=== PATIENT | female | born 1990 | race Caucasian/White ===

== ENCOUNTER → 2017-01-22 | Outpatient (CLI) | payer OTHER ==
[~2017-01-22] VITALS: Ht 165.1 cm; Wt 55.0 kg
[2017-01-22] VITALS (9 sets, daily range): BP systolic 109–129; BP diastolic 50–86; PULSE 50–86; TEMP 36.8; O2SAT 98–100; Ht 165.1 cm; Wt 55.0 kg
[~2017-01-22] MED LIST: BENZOCAIN/TETRACA/BUTAM SPRAY 200 APPLN/20 GM SPRY ONE; CANNULA ONE; FENTANYL CITRATE INJ 50 MCG/1 ML 2 ML VIAL ONE; LIDOCAINE HCL 2% VISC SOLN 20 ML UDC ONE; MIDAZOLAM HCL 1 MG/ML 2ML VIAL ONE
--- NOTE | 2017-01-22 07:55 | History & Physical Bridge Note ---
H&P Re-Evaluation Bridge Note: I have examined the patient, reviewed the History & Physical and in the interval since the performance of the History & Physical I have noted the following changes of clinical significance: No changes noted.
--- NOTE | 2017-01-22 07:55 | Procedure Note ---
Pre-Mod Sedation Assessment General Date of Moderate Sedation: Jan 22, 2017. Vital Signs: Vital Signs Past 12 Hours Date Time Temp Pulse Resp B/P (MAP) Pulse Ox O2 Delivery O2 Flow Rate FiO2 01/22/17 07:35 36.8 71 12 120/60 100 Room Air Review Cardiovascular: regular rate, rhythm Abdomen: soft, no organomegaly Lungs: lungs clear Airway Class: I Pre-Sedation Airway Assessment Oral Cavity: WNL Able to Visualize Vocal Cords: No Short Thick Neck: No Hx of Sleep Apnea: No Smoking Status: Never Smoker Mallampati Classification: Class II ASA Classification: Class II Procedure Planning Contraindications-for Mod Sed: None Yes Notes The planned sedation has been discussed with the patient and consent obtained. I have identified the patient, determined the appropriateness of sedation and have assessed the patient immediately prior to the procedure. All medicine(s) and interventions are by my order.
--- NOTE | 2017-01-22 08:48 | Procedure Note ---
Post-Mod Sedation Assessment General Date of Moderate Sedation Jan 22, 2017. Vital Signs: Vital Signs Past 12 Hours Date Time Temp Pulse Resp B/P (MAP) Pulse Ox O2 Delivery O2 Flow Rate FiO2 01/22/17 08:42 53 12 118/45 (69) 99 Nasal Cannula 2 01/22/17 07:35 36.8 71 12 120/60 100 Room Air Review - Discharge Criteria Vital Signs Stable: Yes Alert/Oriented/Conversant: Yes Returned to Baseline Mental St: Yes Nausea Absent/Minimal: Yes Pain/Discomfort/Absent/Minimal: Yes Normal/Baseline Respirations: Yes Active Bleeding?: No Pt Received D/C Instructions: Yes Prescriptions Given: None Specific Proced. D/C Criteria Distal Pulses Present (Cardiac: N/A Groin site assessed-Card Cath: N/A Voided Prior To Discharge: N/A Discharged Patients Adult Escort/Transportation: Yes
--- NOTE | 2017-01-22 08:56 | Cardiology Procedure Brief Nt ---
Preliminary Cardiology Note Procedure Date Jan 22, 2017. Pre-Procedure Diagnosis congenital heart disease, technically limited transthoratic echocardiogram Post-Procedure Diagnosis intact atrial septum, mild MR Procedure(s) Performed DONTA, moderate sedation Asthma Educator Neela Freed DO City Solicitor(s) MARCELA Anglin Estimated Blood Loss none Medication(s) Sedation start time: 8:07 am, Sedation end time 8:41 am. 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
--- NOTE | 2017-01-22 09:00 | Discharge Instructions ---
Discharge Instructions Procedure Procedure Date: Jan 22, 2017. Reason for Visit: Congenital Heart Disease, Surgical atrial septal defect closure as child. Discharge Discharge Date: Jan 22, 2017. Discharge Diagnosis: Intact atrial septum [place] Mitral valve Morphology, mild MR. Last Recorded Wt (Kilograms): 55 Anesthesia Post Anesthesia Instructions: If you have had General Anesthesia or IV Sedation: * Do not drive today. * Resume driving when surgeon permits. * Do not make important decisions or sign legal documents today. * Call surgeon for: 1. Temperature elevations greater than 101 degrees F. 2. Uncontrollable pain. 3. Excessive bleeding. 4. Persistent nausea and vomiting. 5. Medication intolerance (nausea, vomiting or rash). * For nausea and vomiting use only clear liquids such as: tea, soda, bouillon until nausea subsides, then gradually increase diet as tolerated. * If you have any concerns or questions, call your surgeon's office. If physician is unavailable and it is an emergency, call 911 or go to the nearest emergency room. Instructions Activity Recommendations: limitations as noted below Recommended Home Diet: resume previous diet Allergies: Coded Allergies: Codeine (Unverified Allergy, Intermediate, HIVES, 01/22/17) PER PATIENT Follow Up Additional Instructions: ACTIVITY RECOMMENDATIONS: Resume activities as tolerated with no limitations unless specified. _x_ No lifting over _10_ pounds for 24 hours. _x_ Do not engage in vigorous exercise, sexual activity, or sports for 24 hours. _x_ Do not drive or operate any motorized equipment for 24 hours. _x_ You may return to work/school tomorrow. _x_ Nothing to eat or drink until gag reflex returns. _x_ No HOT or WARM liquids for _10_ hours. _x_ Avoid "scratchy" foods such as potato chips or pretzels for 24 hours following procedure. SPECIAL CARE: If you experience coughing up or vomiting of blood, contact __Dr Freed, Follow-up with: Dr Freed as planned. [facility] Recommendations: Call your doctor if: * Temperature above 101 degrees * Pain not relieved by pain medicine ordered * There is increased drainage or redness from any incision * You have any unanswered questions or concerns. Your Doctors Instructions noted above were prepared by provider Jonah Freed. Patient Signature Section: Patient Instructions Signature Page Michelle Hsu Patient (or Guardian) Signature/Date: I have read and understand the instructions given to me by my caregivers. Caregiver/RN/Doctor Signature/Date: The above-named patient and/or guardian has received patient instructions on this date. + Original Patient Signature Page (only) stays with chart. Please make copy for patient.
--- NOTE | 2017-01-22 19:31 | TEE ---
*NOTICE TO RECEIVING DEMOCRAT AGENCY This information is strictly Confidential and protected under [place] law. [place] law prohibits you from making any further disclosure of this information unless further disclosure is expressly permitted by the written consent of the person to whom it pertains or is authorized by law. A general authorization for the release of medical or other information is not sufficient for this purpose. Hospital accepts no responsibility if the information is made available to any other person, INCLUDING THE PATIENT. Interpretation Summary * Name: EDISON LEE Study Date: 01/22/2017 07:08 AM BP: 129/77 mmHg * Patient Location: Cardiopulmonary Lab HR: 54 * : 1990 (M/d/yyyy) Gender: Female Height: 65 in * Age: 27 yrs Ethnicity: CA Weight: 122 lb * Ordering Physician: Jonah Freed DO [facility] * Performed By: Scout Ann RCS * * Reason For Study: Mitral Valve Dz * BSA: 1.6 m2 * -- Conclusions -- * The study was performed for follow up of congenital heart disease in a 27 year old female who recently moved to the area having previously been followed in the [facility]. * She has history of congestive heart failure as an with surgical repair of an atrial septal defect at age 7 months. * She is known to have residual congenital mitral valve disease. * Her recent transthoracic echocardiogram was technically inadequate given poor acoustic windows and limitations with the standard imaging views. * The study reveals congenital variation of the right ventricular and left ventricular anatomy. * The LV Ejection Fraction = 55-60% (normal). * The RV ejection fraction is normal. * The tricuspid valve annulus is narrow as is the right ventricular inflow diameter from the right atrium. * Significant tricuspid regurgitation is absent. * There is no tricuspid stenosis. * The mitral valve is congenitally abnormal with a single papillary muscle arising from the interventricular septum. * The mitral valve leaflets were moderately thickened. * There is mild mitral regurgitation. * There is no mitral valve stenosis. * The aortic valve is trileaflet. * No aortic regurgitation is present. Procedure Details * DONTA Probe #3 utilized for procedure Procedure start time was 0807 Procedure stop time was 0841 * The study was performed in Cardiopulmonary Department. * Time out was conducted by the physician, nurse, and fishing tool technician oil well with positive identification of patient and procedure. * Informed consent for Transesophageal Echocardiogram was obtained prior to the procedure. * An intravenous line was placed. A topical anesthetic agent was used for oropharangeal anesthesia. A bite block was inserted. * The patient's vital signs, including blood pressure, heart rate, pulse oximetry and cardiac rhythm were monitored throughout the procedure . * Fentanyl 75 mcg was administered for procedural sedation. * Midazolam 4 mg administered for sedation. * A multifrequency, multiplane transesopheageal echocardiographic endoscope was inserted and manipulated in the standard fashion to achieve multiplane views. * The transesophageal probe was passed without difficulty. * Contrast injection with agitated saline was performed. * The usual views were obtained; basal, mid-esophageal, transgastric and aortic views. * The patient tolerated the procedure well without evidence of orophangeal or esophageal trauma. * A 2D transesophageal echocardiogram was performed. * A 2D transesophageal echocardiogram with Doppler and color flow Doppler was performed. Left Ventricle * The left ventricle is normal in size. * There is normal left ventricular wall thickness. * Left ventricular systolic function is normal. * Ejection Fraction = 55-60%. * The left ventricular wall motion is normal. Right Ventricle * The right ventricle is normal in size and function. Atria * The left atrial size is normal. * Right atrial size is normal. * The interatrial septum is intact with no evidence for an atrial septal defect. Mitral Valve * The mitral valve is congenitally abnormal with a single papillary muscle arising from the interventricular septum. * There is no mitral valve prolapse present. * There is no mitral valve stenosis. * The mitral valve leaflets were moderately thickened. * There is mild mitral regurgitation. Tricuspid Valve * The tricuspid valve annulus is narrow as is the right ventricular inflow diameter from the right atrium. * There is no tricuspid stenosis. * Significant tricuspid regurgitation is absent. Aortic Valve * The aortic valve is trileaflet. * No hemodynamically significant valvular aortic stenosis. * No aortic regurgitation is present. Pulmonic Valve * The pulmonic valve is not well seen, but is grossly normal. Great Vessels * The aortic root is normal size. Pericardium * There is no pericardial effusion. Doppler Measurements and Calculations MV V2 mean 78.4 cm/sec MV mean PG 3.7 mmHg MV V2 VTI 47.5 cm
== END | disposition home or self-care (01) ==
LOC: C.CPL 06:43
PROVIDERS: ATTEND Specialist
DX: I05.9 Rheumatic mitral valve disease, unspecified (principal); R00.2 Palpitations; Z98.890 Other specified postprocedural states; Z87.74 Personal history of (corrected) congenital malformations of heart and circulatory system; R94.31 Abnormal electrocardiogram [ECG] [EKG]

== ENCOUNTER 2017-02-18 09:06 | Emergency (ER) | payer OTHER ==
[~2017-02-18] VITALS: Ht 165.1 cm; Wt 55.5 kg
[2017-02-18 09:09] VITALS: TEMP 36.5; Ht 165.1 cm; Wt 55.5 kg
[2017-02-18] MEDS ORDERED: ONDANSETRON INJ 2 MG/ML 2 ML VIAL IV STA (09:17)
[2017-02-18] MEDS ORDERED: KETOROLAC TROMETHAMINE 30 MG/ML VIAL IV STA (09:17)
[2017-02-18] MEDS ORDERED: SODIUM CHLORIDE 0.9% 1000ML 1,000 ML IV STA (09:17)
--- NOTE | 2017-02-18 09:23 | EMERGENCY ROOM VISIT NOTE ---
History Report prepared by Derrell: Klaudia Armas Under the Supervision of: Dr. Manan Cason M.D. First contact with patient: 09:13 Chief Complaint: VOMITING Stated Complaint: VOMITTING DEHYDRATED Nursing Triage Summary: pt reports at 0600 today vomiting and diarrhea and chest intermittently gets tight . pt suppose to have imaging done for lump on right hip area. sx started 3 days History of Present Illness The patient is a 27 year old female who presents to the Emergency Room with complaints of persistent vomiting that began this morning. She currently rates her discomfort as a 4/10 in severity. The patient states that three days ago she developed right lower abdominal pain that has been intermittent. She states that she is scheduled to have an ultrasound at [facility] [place] today at 1130 for the pain and a lump that she found on her right hip. The patient denies any previous abdominal surgery, stating that she still has her gallbladder and appendix. She is unsure if she is , noting that she is supposed to start her cycle tomorrow. The patient additionally reports diarrhea. Source of History: patient Onset: this morning Position: other (global) Symptom Intensity: 4/10 Quality: other (vomiting) Timing: other (persistent) Associated Symptoms: + abdominal pain, + diarrhea Review of Systems See HPI for pertinent positives & negatives. A total of 10 systems reviewed and were otherwise negative. Past Medical & Surgical Medical Problems: (1) Mitral valve disorder Family History Heart disease Social History Smoking Status: Never Smoker Marital Status: Housing Status: lives with significant other Occupation Status: employed Current/Historical Medications Scheduled Ondasetron Odt (Zofran Odt), 4 MG SL Q6H Allergies Coded Allergies: Codeine (Unverified Allergy, Intermediate, HIVES, 02/18/17) PER PATIENT Physical Exam Vital Signs Date Time Temp Pulse Resp B/P (MAP) Pulse Ox O2 Delivery O2 Flow Rate FiO2 02/18/17 10:43 81 18 115/69 98 02/18/17 10:03 83 18 110/67 99 Room Air 02/18/17 09:35 88 02/18/17 09:09 36.5 112 18 121/81 99 Room Air Physical Exam GENERAL: Patient is a healthy-appearing well-nourished female HEAD: Normocephalic atraumatic EYES: Ocular movements intact pupils equal and react to light OROPHARYNX mucous membranes are moist no exudates present no erythema or edema present NECK: Supple no nuchal rigidity CHEST: Good equal expansion LUNGS: Clear and equal to auscultation CARDIAC: Normal S1 and S2 ABDOMEN: Soft nontender no guarding BACK: No CVA tenderness EXTREMITIES: No pain upon palpation normal muscle strength in all groups no clubbing cyanosis or edema NEURO: Patient is following commands and answering questions appropriately. Alert and oriented x3 Cranial Nerves 2-12 grossly intact Medical Decision & Procedures ER Provider Diagnostic Interpretation: X-ray results as stated below per interpretation by me and the radiologist: ABDOMEN 2VIEW W/PA CHEST RTN CLINICAL HISTORY: Nausea, vomiting, diarrhea COMPARISON STUDY: No previous studies for comparison. FINDINGS: There are postsurgical changes of midline sternotomy. There is no focal pulmonary consolidation. There is no free intraperitoneal air. There are no transition zones indicate bowel obstruction. There are few scattered air-fluid levels on the erect study. There are several small bowel loops the upper limits of normal in diameter. IMPRESSION: Nonspecific bowel gas pattern with small bowel loops at the upper limits of normal in size, and scattered air-fluid levels, most of which are colonic. There is no conventional radiographic evidence of a high-grade bowel obstruction. There is no free air. Electronically signed by: Yefri Nagel M.D. 02/18/2017 10:02 AM Dictated Date/Time: 02/18/2017 10:00 AM Laboratory Results 02/18/17 09:25 Red Blood Count 4.55, Mean Corpuscular Volume 91.2, Mean Corpuscular Hemoglobin 30.5, Mean Corpuscular Hemoglobin Concent 33.5, Mean Platelet Volume 9.6, Neutrophils (%) (Auto) 87.0, Lymphocytes (%) (Auto) 4.5, Monocytes (%) (Auto) 7.3, Eosinophils (%) (Auto) 0.8, Basophils (%) (Auto) 0.1, Neutrophils # (Auto) 18.03, Lymphocytes # (Auto) 0.93, Monocytes # (Auto) 1.52, Eosinophils # (Auto) 0.16, Basophils # (Auto) 0.02 02/18/17 09:25 Test 02/18/17 09:25 02/18/17 10:35 White Blood Count 20.72 K/uL (4.8-10.8) Red Blood Count 4.55 M/uL (4.2-5.4) Hemoglobin 13.9 g/dL (12.0-16.0) Hematocrit 41.5 % (37-47) Mean Corpuscular Volume 91.2 fL (80-100) Mean Corpuscular Hemoglobin 30.5 pg (25-34) Mean Corpuscular Hemoglobin Concent 33.5 g/dl (32-36) Platelet Count 380 K/uL (130-400) Mean Platelet Volume 9.6 fL (7.4-10.4) Neutrophils (%) (Auto) 87.0 % Lymphocytes (%) (Auto) 4.5 % Monocytes (%) (Auto) 7.3 % Eosinophils (%) (Auto) 0.8 % Basophils (%) (Auto) 0.1 % Neutrophils # (Auto) 18.03 K/uL (1.4-6.5) Lymphocytes # (Auto) 0.93 K/uL (1.2-3.4) Monocytes # (Auto) 1.52 K/uL (0.11-0.59) Eosinophils # (Auto) 0.16 K/uL (0-0.5) Basophils # (Auto) 0.02 K/uL (0-0.2) RDW Standard Deviation 44.8 fL (36.4-46.3) RDW Coefficient of Variation 13.6 % (11.5-14.5) Immature Granulocyte % (Auto) 0.3 % Immature Granulocyte # (Auto) 0.06 K/uL (0.00-0.02) Anion Gap 8.0 mmol/L (3-11) Est Creatinine Clear Calc Drug Dose 94.1 ml/min Estimated GFR () 119.9 Estimated GFR (Non- 103.5 BUN/Creatinine Ratio 19.4 (10-20) Calcium Level 9.0 mg/dl (8.5-10.1) Total Bilirubin 0.7 mg/dl (0.2-1) Direct Bilirubin 0.2 mg/dl (0-0.2) Aspartate Amino Transf (AST/SGOT) 13 U/L (15-37) Alanine Aminotransferase (ALT/SGPT) 20 U/L (12-78) Alkaline Phosphatase 50 U/L (45-117) Total Protein 8.8 gm/dl (6.4-8.2) Albumin 4.6 gm/dl (3.4-5.0) Lipase 138 U/L (73-393) Human Chorionic Gonadotropin, Qual NEG (NEG) Urine Color DK YELLOW Urine Appearance CLEAR (CLEAR) Urine pH 5.0 (4.5-7.5) Urine Specific [place] 1.028 (1.000-1.030) Urine Protein TRACE (NEG) Urine Glucose (UA) NEG (NEG) Urine Ketones 1+ (NEG) Urine Occult Blood NEG (NEG) Urine Nitrite NEG (NEG) Urine Bilirubin NEG (NEG) Urine Urobilinogen NEG (NEG) Urine Leukocyte Esterase SMALL (NEG) Urine WBC (Auto) 1-5 /hpf (0-5) Urine RBC (Auto) 0-4 /hpf (0-4) Urine Hyaline Casts (Auto) 5-10 /lpf (0-5) Urine Epithelial Cells (Auto) >30 /lpf (0-5) Urine Bacteria (Auto) NEG (NEG) Urine Test NEG (NEG) Medications Administered Medications (Trade) Dose Ordered Sig/Bud Route Start Time Stop Time Status Last Admin Dose Admin Sodium Chloride 1,000 ml @ 999 mls/hr Q1H1M STAT IV 02/18/17 09:17 10 10:17 DC 02/18/17 09:29 999 MLS/HR Ketorolac Tromethamine (Toradol Inj) 30 mg NOW STAT IV 02/18/17 09:17 02/18/17 09:18 DC 02/18/17 09:29 30 MG Ondansetron HCl (Zofran Inj) 4 mg NOW STAT IV 02/18/17 09:17 02/18/17 09:18 DC 02/18/17 09:29 4 MG ED Course 0914: Past medical records reviewed. The patient was evaluated in room B5. A complete history and physical examination was performed. 0917: Ordered Zofran Inj 4 mg IV, Toradol Inj 30 mg IV, Sodium Chloride 1000 ml @ 999 mls/hr IV. 1015: I reevaluated the patient and she is resting comfortably. I discussed the exam findings with her and I discussed the treatment plan. She verbalized complete understanding and agreement. She is ready to go home. Medical Decision Differential diagnosis: Etiologies such as gastroenteritis, food borne illness, infections, appendicitis , diverticulitis, inflammatory bowel disease, obstruction, GI bleed, biliary pathology, as well as others were entertained. This is a 27-year-old female who presents emergency department complaining of nausea vomiting and diarrhea. Serial abdominal examinations were performed on the patient in the emergency department and at no tender the patient exhibit right lower quadrant abdominal tenderness for any abdominal pain. She does not have a surgical abdomen. The patient is having a cyst on her right hip evaluated at an appointment 11:15. She does have an elevation in her white blood count cell count however is afebrile and I believe this may be due to vomiting. The patient was given normal saline bolus as well as Toradol and Zofran. Repeat abdominal examination revealed the patient able to drink Gatorade. Based on these findings I feel that the patient can be discharged home pending urine and stool culture results. She is not . Patient is going to follow-up for her appointment at 11:15 today. Medication Reconcilliation Current Medication List: was personally reviewed by me Impression Primary Impression: Gastroenteritis Scribe Attestation The scribe's documentation has been prepared under my direction and personally reviewed by me in its entirety. I confirm that the note above accurately reflects all work, treatment, procedures, and medical decision making performed by me. Departure Information Dispostion Home / Self-Care Prescriptions Ondasetron Odt (ZOFRAN ODT) 4 Mg Tab 4 MG SL Q6H for Nausea, #6 TAB Prov: Manan Cason MD 02/18/17 Referrals Qasim Hoffman M.D.(SHERI) (PCP) Forms HOME CARE DOCUMENTATION FORM, IMPORTANT VISIT INFORMATION, School Instructions, Work Instructions Patient Instructions ED Gastroenteritis Report Pend, My [facility] Additional Instructions Keep appointments as previously scheduled. Culture results are usually available in approx 48 hours You have been examined and treated today on an emergency basis only. This is not a substitute for, or an effort to provide, complete comprehensive medical care. It is impossible to recognize and treat all injuries or illnesses in a single emergency department visit. It is therefore important that you follow up closely with Dr Hoffman. Call as soon as possible for an appointment. Thank you for your time and consideration. I look forward to speaking with you again soon. Please don't hesitate to call us if you have any questions.
[2017-02-18 09:42] LABS: BASO % 0.1 %; BASO ABS # 0.02 K/uL (0-0.2); COMPLETE YES; EOS % 0.8 %; HEMATOCRIT 41.5 % (37-47); IG% 0.3 %; LYMPH % 4.5 %; LYMPH ABS # 0.93 K/uL (1.2-3.4); MEAN CELL VOLUME 91.2 fL (80-100); MEAN CORPUSCULAR HEMOGLOBIN 30.5 pg (25-34); MEAN CORPUSCULAR HGB CONC 33.5 g/dl (32-36); MEAN PLATELET VOLUME 9.6 fL (7.4-10.4); MONO % 7.3 %; PLATELET COUNT 380 K/uL (130-400); RED BLOOD COUNT 4.55 M/uL (4.2-5.4); WHITE BLOOD COUNT 20.72 K/uL (4.8-10.8)
[2017-02-18 10:01] LABS: BUN/CREATININE RATIO 19.4 (10-20); CREATININE 0.78 mg/dl (0.60-1.20); POTASSIUM 3.6 mmol/L (3.5-5.1)
--- NOTE | 2017-02-18 10:03 | DIAGNOSTIC IMAGING REPORT ---
ABDOMEN 2VIEW W/PA CHEST RTN CLINICAL HISTORY: Nausea, vomiting, diarrhea COMPARISON STUDY: No previous studies for comparison. FINDINGS: There are postsurgical changes of midline sternotomy. There is no focal pulmonary consolidation. There is no free intraperitoneal air. There are no transition zones indicate bowel obstruction. There are few scattered air-fluid levels on the erect study. There are several small bowel loops the upper limits of normal in diameter. IMPRESSION: Nonspecific bowel gas pattern with small bowel loops at the upper limits of normal in size, and scattered air-fluid levels, most of which are colonic. There is no conventional radiographic evidence of a high-grade bowel obstruction. There is no free air. Electronically signed by: Yefri Nagel M.D. 02/18/2017 10:02 AM Dictated Date/Time: 02/18/2017 10:00 AM
[2017-02-18] MEDS ORDERED: ONDA4TAB10 SL (10:14)
[2017-02-18 10:43] VITALS: BP 115/69; PULSE 81; O2SAT 98
[2017-02-18 10:51] LABS: URINE APPEARANCE CLEAR (CLEAR); URINE BILIRUBIN NEG (NEG); URINE COLOR DK YELLOW; URINE EPITHELIAL CELL AUTO >30 /lpf (0-5); URINE NITRITE NEG (NEG); URINE SPECIFIC GRAVITY 1.028 (1.000-1.030); UROBILINOGEN NEG (NEG)
[2017-02-18 10:52] LABS: MANUAL MICROSCOPIC REQUIRED? NO; REVIEW REQ? NO
[2017-02-18 10:55] LABS: PREG INTERNAL NEGATIVE QC NEG CLEAR BACKGROUND; PREG INTERNAL POSITIVE QC POS CONTROL LINE
== END 2017-02-18 10:44 | disposition home or self-care (01) ==
LOC: C.EDB 09:08
DX: K52.9 Noninfective gastroenteritis and colitis, unspecified (principal); I34.1 Nonrheumatic mitral (valve) prolapse; Z88.5 Allergy status to narcotic agent; Z82.49 Family history of ischemic heart disease and other diseases of the circulatory system

== ENCOUNTER 2017-09-14 18:28 | Emergency (ER) | payer OTHER ==
[~2017-09-14] VITALS: Ht 165.1 cm; Wt 58.9 kg
[2017-09-14 18:30] VITALS: TEMP 36.8; Ht 165.1 cm; Wt 58.9 kg
[2017-09-14] MEDS ORDERED: SODIUM CHLORIDE 0.9% 1000ML 1,000 ML IV STA (18:48)
--- NOTE | 2017-09-14 19:19 | EMERGENCY ROOM VISIT NOTE ---
ED Visit Note First contact with patient: 18:33 CHIEF COMPLAINT: Right lower quadrant abdominal pain HISTORY OF PRESENTING ILLNESS: This is a 27-year-old female presents with complaint of right lower quadrant abdominal pain that started today. Patient states that she started with mid abdominal discomfort and cramping, pain then moved and localized to her right lower abdomen. She describes the pain as constant, pressure-like, worse with moving and bending at the waist, better with lying still, currently rates as 6/10. She has not tried any medications for the pain. She has had associated nausea and decreased appetite today, but denies any vomiting, fevers or chills, diarrhea, constipation, bloody or black stools, urinary symptoms, abnormal vaginal bleeding or discharge. Her last menstrual period was 09/01. She denies any history of previous abdominal surgeries. She denies any history of ovarian cysts. She does note that she had a colposcopy done to cut out a spot on her cervix approximately 1 week ago, but denies any issues since the surgery. She denies any other symptoms of headaches, chest pain, shortness of breath, back pain, numbness or tingling of the extremities, or unusual rash. REVIEW OF SYSTEMS: A complete 10 point review of systems was reviewed with the patient with pertinent positives and negatives as per history of present illness. All else were negative. PAST MEDICAL HISTORY: Reviewed in chart, see problem list below SOCIAL HISTORY: Lives at home. Denies tobacco use. ALLERGIES: Reviewed in chart, see below. PHYSICAL EXAM: CONSTITUTIONAL: Pleasant and cooperative. No acute distress, but appears uncomfortable. Mildly dehydrated, but otherwise well appearing and well nourished. HEENT: Normocephalic, atraumatic. Pupils equal, round and reactive to light, EOMI. TMs normal. Pharynx normal. Tacky mucous membranes. NECK: Supple, full active range of motion without discomfort. RESPIRATORY: Clear to auscultation bilaterally with no wheezing, crackles, rhonchi or stridor. Equal expansion bilaterally. CARDIOVASCULAR: Regular rate and rhythm with no murmurs, rubs or gallops. Normal peripheral perfusion. No edema. GASTROINTESTINAL: Moderately tender to palpation in the right lower quadrant with positive McBurney's point tenderness, positive rebound tenderness, positive Rovsing. Soft, nondistended. No palpable masses or HSM. Bowel sounds present in all quadrants. No CVA tenderness bilaterally. MUSCULOSKELETAL: Full range of motion of all joints without discomfort. INTEGUMENTARY: No rash or other significant dermatologic conditions noted. NEUROLOGIC: Alert and oriented X 4 with normal affect. Normal strength and sensation in all 4 extremities. No focal neurologic deficits noted. Normal speech. Normal gait observed. ED COURSE AND MEDICAL DECISION MAKING: CC: Patient presenting with complaint of right lower quadrant abdominal pain DIFFERENTIAL DIAGNOSIS: Includes, but not limited to appendicitis, mesenteric adenitis, ovarian cyst, ovarian torsion, ectopic , gastroenteritis, colitis, UTI, among others. INTERPRETATION OF LABS: No leukocytosis, no anemia, no significant electrolyte abnormalities, normal renal function, normal liver enzymes and lipase. Negative serum . UA consistent with contamination, no infection. IMAGING: PELVIC COMPLETE NON OB CLINICAL HISTORY: 27 years-old Female presenting with RLQ pain, eval for ovarian cyst/torsion. TECHNIQUE: Real-time grayscale and color and spectral Doppler ultrasound imaging of the pelvis was performed first using a transabdominal probe and subsequently transvaginal for better characterization. COMPARISON: None. FINDINGS: Uterus: Normal. Anteverted retroflexed. The uterus measures 8.5 x 4.2 x 5.3 cm. Endometrial stripe measures 15 mm in thickness. Endometrium normal-appearing for the phase of the menstrual cycle. Cervix normal. Right adnexa: Right ovary contains a 2.0 x 1.7 x 1.8 cm lesion with homogenous low-level internal echoes. An additional hypoechoic more irregular 1.6 x 1.1 x 1.1 cm lesion is also noted within the ovary. Neither of these demonstrate internal vascularity or marked peripheral hyperemia. Right ovary measures 4.7 x 2.6 x 3.2 cm. Normal color Doppler flow and arterial and venous waveforms within the ovarian parenchyma. Left adnexa: Left ovary normal. Left ovary measures 3.8 x 2.0 x 2.7 cm. Normal color Doppler flow and arterial and venous waveforms within the ovarian parenchyma. Other: Trace free fluid, likely physiologic. IMPRESSION: No evidence of ovarian torsion. Findings suggest a hemorrhagic cyst/corpus luteum as well as a possible endometrioma within the right ovary. These would be better assessed with MR, however, a follow-up pelvic ultrasound could be considered as 4-6 weeks to assess for resolution. ----- ABDOMEN LIMITED (US) CLINICAL HISTORY: 27 years-old Female presenting with ABDOMINAL PAIN. TECHNIQUE: Real-time grayscale and limited color Doppler ultrasound imaging of the right lower quadrant was performed to evaluate the appendix. COMPARISON: Plain radiograph of the abdomen from 02/18/2017. FINDINGS: Appendix not visualized. No free fluid or hyperechogenic fat to suggest secondary signs of inflammation. IMPRESSION: Appendix not visualized, although no secondary signs of inflammation. This does not exclude the diagnosis of appendicitis. MEDICATION RECONCILIATION: I attest that I have personally reviewed the patient 's current medication list. INITIAL VITAL SIGNS REVIEW: I reviewed the patient's initial vital signs and interpret them as follows: T: Afebrile; BP: Normotensive; HR: Within normal limits; RR: Within normal limits; Pulse Ox: Within normal limits on room air. Blood pressure screening: The patient was found to have normal blood pressure on screening and does not require follow-up for repeat blood pressure check. SUMMARY: Patient was evaluated at bedside, history and physical exam performed. Patient is alert and oriented, no acute distress but appears uncomfortable, resting in the stretcher. Tender to palpation in the right lower quadrant with McBurney's point tenderness , slight rebound tenderness, and positive Rovsing. No palpable mass to suggest hernia or large ovarian cyst. Orders were placed at bedside for labs, UA and urine , IV fluids for hydration, pelvic ultrasound to evaluate for ovarian pathology and appendicitis , and oral prep started for possible CT of the abdomen/pelvis to evaluate for appendicitis. Patient was offered something for pain, she declines at this time. Patient discussed with Dr. Chacon, who agrees with my assessment and plan. Labs and imaging reviewed as above, pelvic ultrasound notable for a right hemorrhagic ovarian cyst, which I suspect is the cause of patient's pain. I discussed results with the patient, she was given IV Toradol for her pain, and CT was canceled. Patient reassessed multiple times throughout ED stay, she reports improved pain after the Toradol and has remained stable. Patient was updated on all results and plan for discharge, she was encouraged to follow-up with her PCP and to keep her scheduled follow-up with her finished metal repairer. Patient was also given strict return precautions should her symptoms worsen, she verbalized understanding. Patient was discharged home in stable condition and ambulatory. Problem List Medical Problems: (1) Mitral valve disorder Status: Chronic Current/Historical Medications No Active Prescriptions or Reported Meds Allergies Coded Allergies: Codeine (Unverified Allergy, Intermediate, HIVES, 02/18/17) PER PATIENT Vital Signs Date Time Temp Pulse Resp B/P (MAP) Pulse Ox O2 Delivery O2 Flow Rate FiO2 09/14/17 22:06 57 18 100/48 98 09/14/17 20:19 58 18 117/62 100 Room Air 09/14/17 18:30 36.8 92 18 134/72 99 Room Air Laboratory Results 09/14/17 19:00 Red Blood Count 4.12, Mean Corpuscular Volume 90.3, Mean Corpuscular Hemoglobin 30.8, Mean Corpuscular Hemoglobin Concent 34.1, Mean Platelet Volume 9.6, Neutrophils (%) (Auto) 51.1, Lymphocytes (%) (Auto) 36.1, Monocytes (%) (Auto) 7.5, Eosinophils (%) (Auto) 4.8, Basophils (%) (Auto) 0.4, Neutrophils # (Auto) 5.07, Lymphocytes # (Auto) 3.59, Monocytes # (Auto) 0.75, Eosinophils # (Auto) 0.48, Basophils # (Auto) 0.04 09/14/17 19:00 Test 09/14/17 19:00 White Blood Count 9.94 K/uL (4.8-10.8) Red Blood Count 4.12 M/uL (4.2-5.4) Hemoglobin 12.7 g/dL (12.0-16.0) Hematocrit 37.2 % (37-47) Mean Corpuscular Volume 90.3 fL (80-100) Mean Corpuscular Hemoglobin 30.8 pg (25-34) Mean Corpuscular Hemoglobin Concent 34.1 g/dl (32-36) Platelet Count 343 K/uL (130-400) Mean Platelet Volume 9.6 fL (7.4-10.4) Neutrophils (%) (Auto) 51.1 % Lymphocytes (%) (Auto) 36.1 % Monocytes (%) (Auto) 7.5 % Eosinophils (%) (Auto) 4.8 % Basophils (%) (Auto) 0.4 % Neutrophils # (Auto) 5.07 K/uL (1.4-6.5) Lymphocytes # (Auto) 3.59 K/uL (1.2-3.4) Monocytes # (Auto) 0.75 K/uL (0.11-0.59) Eosinophils # (Auto) 0.48 K/uL (0-0.5) Basophils # (Auto) 0.04 K/uL (0-0.2) RDW Standard Deviation 44.6 fL (36.4-46.3) RDW Coefficient of Variation 13.4 % (11.5-14.5) Immature Granulocyte % (Auto) 0.1 % Immature Granulocyte # (Auto) 0.01 K/uL (0.00-0.02) Urine Color YELLOW Urine Appearance CLEAR (CLEAR) Urine pH 6.5 (4.5-7.5) Urine Specific [place] 1.011 (1.000-1.030) Urine Protein NEG (NEG) Urine Glucose (UA) NEG (NEG) Urine Ketones NEG (NEG) Urine Occult Blood NEG (NEG) Urine Nitrite NEG (NEG) Urine Bilirubin NEG (NEG) Urine Urobilinogen NEG (NEG) Urine Leukocyte Esterase SMALL (NEG) Urine WBC (Auto) 1-5 /hpf (0-5) Urine RBC (Auto) 0-4 /hpf (0-4) Urine Hyaline Casts (Auto) 0 /lpf (0-5) Urine Epithelial Cells (Auto) 20-30 /lpf (0-5) Urine Bacteria (Auto) NEG (NEG) Anion Gap 6.0 mmol/L (3-11) Est Creatinine Clear Calc Drug Dose 96.6 ml/min Estimated GFR () 119.9 Estimated GFR (Non- 103.5 BUN/Creatinine Ratio 10.0 (10-20) Calcium Level 8.8 mg/dl (8.5-10.1) Total Bilirubin 0.5 mg/dl (0.2-1) Direct Bilirubin 0.2 mg/dl (0-0.2) Aspartate Amino Transf (AST/SGOT) 12 U/L (15-37) Alanine Aminotransferase (ALT/SGPT) 20 U/L (12-78) Alkaline Phosphatase 54 U/L (45-117) Total Protein 8.1 gm/dl (6.4-8.2) Albumin 4.2 gm/dl (3.4-5.0) Lipase 145 U/L (73-393) Human Chorionic Gonadotropin, Qual NEG (NEG) Medications Administered Medications (Trade) Dose Ordered Sig/Bud Route Start Time Stop Time Status Last Admin Dose Admin Sodium Chloride 1,000 ml @ 999 mls/hr Q1H1M STAT IV 09/14/17 18:48 09/14/17 19:48 DC 09/14/17 19:12 999 MLS/HR Ketorolac Tromethamine (Toradol Inj) 15 mg NOW STAT IV 09/14/17 21:29 09/14/17 21:30 DC 09/14/17 21:37 15 MG Departure Information Impression Primary Impression: Hemorrhagic cyst of right ovary Dispostion Home / Self-Care Condition GOOD Prescriptions No Active Prescriptions or Reported Meds Referrals Qasim Hoffman M.D.([facility]) (PCP) Patient Instructions ED Cyst Ovarian, [facility] Additional Instructions You have been treated in the Emergency Department for your abdominal pain. Laboratory results and imaging studies have ruled out any emergent causes for your symptoms which would warrant admission or surgery. Your ultrasound shows a right ovarian cyst. This should be followed by your finished metal repairer. For pain control, you can use the following [id number] medicines (if >12 yo): - Regular strength (325mg/tab) Tylenol (acetaminophen) 2 tabs every 4-6 hours as needed. Do not exceed 10 tablets in a 24 hour period. Avoid taking more than 3000 mg of Tylenol per day. This includes any other sources of acetaminophen you may take on a regular basis. - Regular strength (200 mg/tab) Advil (ibuprofen) 3 tabs every 6-8 hours as needed. Do not exceed a dose of 2400 mg per day. You may also use a heating pad to her abdomen for comfort. Drink plenty of fluids to stay well hydrated. Please follow-up with your Primary Care Provider in the next few days if her symptoms are not improving. Keep your scheduled appointment with her finished metal repairer next week and discuss your ovarian cyst with them. Return to the emergency department for severe worsening abdominal or back pain, worsening nausea/vomiting, vomiting blood, blood in your stool or urine, heavy vaginal bleeding (soaking through more than 1 pad every hour), fevers > 101.5, severe dizziness or passing out, or any other concerns. Work Instructions Return To Work: 2 days
[2017-09-14 19:24] LABS: BASO % 0.4 %; BASO ABS # 0.04 K/uL (0-0.2); EOS % 4.8 %; EOS ABS # 0.48 K/uL (0-0.5); HEMATOCRIT 37.2 % (37-47); HEMOGLOBIN 12.7 g/dL (12.0-16.0); IG# 0.01 K/uL (0.00-0.02); LYMPH % 36.1 %; LYMPH ABS # 3.59 K/uL (1.2-3.4); MEAN CELL VOLUME 90.3 fL (80-100); MEAN CORPUSCULAR HEMOGLOBIN 30.8 pg (25-34); MEAN CORPUSCULAR HGB CONC 34.1 g/dl (32-36); MEAN PLATELET VOLUME 9.6 fL (7.4-10.4); MONO % 7.5 %; MONO ABS # 0.75 K/uL (0.11-0.59); NEUT % 51.1 %; NEUT ABS # 5.07 K/uL (1.4-6.5); PLATELET COUNT 343 K/uL (130-400); RED CELL DISTRIBUTION WIDTH CV 13.4 % (11.5-14.5); RED CELL DISTRIBUTION WIDTH SD 44.6 fL (36.4-46.3); WHITE BLOOD COUNT 9.94 K/uL (4.8-10.8)
[2017-09-14 19:45] LABS: ALBUMIN 4.2 gm/dl (3.4-5.0); CALCIUM 8.8 mg/dl (8.5-10.1); CREATININE 0.78 mg/dl (0.60-1.20); POTASSIUM 3.4 mmol/L (3.5-5.1)
[2017-09-14 19:48] LABS: TOTAL PROTEIN 8.1 gm/dl (6.4-8.2)
--- NOTE | 2017-09-14 20:15 | DIAGNOSTIC IMAGING REPORT ---
ABDOMEN LIMITED (US) CLINICAL HISTORY: 27 years-old Female presenting with ABDOMINAL PAIN. TECHNIQUE: Real-time grayscale and limited color Doppler ultrasound imaging of the right lower quadrant was performed to evaluate the appendix. COMPARISON: Plain radiograph of the abdomen from 02/18/2017. FINDINGS: Appendix not visualized. No free fluid or hyperechogenic fat to suggest secondary signs of inflammation. IMPRESSION: Appendix not visualized, although no secondary signs of inflammation. This does not exclude the diagnosis of appendicitis. Electronically signed by: Robbin Dorantes M.D. 09/14/2017 8:13 PM Dictated Date/Time: 09/14/2017 8:12 PM
--- NOTE | 2017-09-14 20:23 | DIAGNOSTIC IMAGING REPORT ---
PELVIC COMPLETE NON OB CLINICAL HISTORY: 27 years-old Female presenting with RLQ pain, eval for ovarian cyst/torsion. TECHNIQUE: Real-time grayscale and color and spectral Doppler ultrasound imaging of the pelvis was performed first using a transabdominal probe and subsequently transvaginal for better characterization. COMPARISON: None. FINDINGS: Uterus: Normal. Anteverted retroflexed. The uterus measures 8.5 x 4.2 x 5.3 cm. Endometrial stripe measures 15 mm in thickness. Endometrium normal-appearing for the phase of the menstrual cycle. Cervix normal. Right adnexa: Right ovary contains a 2.0 x 1.7 x 1.8 cm lesion with homogenous low-level internal echoes. An additional hypoechoic more irregular 1.6 x 1.1 x 1.1 cm lesion is also noted within the ovary. Neither of these demonstrate internal vascularity or marked peripheral hyperemia. Right ovary measures 4.7 x 2.6 x 3.2 cm. Normal color Doppler flow and arterial and venous waveforms within the ovarian parenchyma. Left adnexa: Left ovary normal. Left ovary measures 3.8 x 2.0 x 2.7 cm. Normal color Doppler flow and arterial and venous waveforms within the ovarian parenchyma. Other: Trace free fluid, likely physiologic. IMPRESSION: No evidence of ovarian torsion. Findings suggest a hemorrhagic cyst/corpus luteum as well as a possible endometrioma within the right ovary. These would be better assessed with MR, however, a follow-up pelvic ultrasound could be considered as 4-6 weeks to assess for resolution. Electronically signed by: Robbin Dorantes M.D. 09/14/2017 8:21 PM Dictated Date/Time: 09/14/2017 8:14 PM
[2017-09-14] MEDS ORDERED: KETOROLAC TROMETHAMINE 30 MG/ML VIAL IV STA (21:29)
[2017-09-14 22:06] VITALS: BP 100/48; PULSE 57; O2SAT 98
== END 2017-09-14 22:07 | disposition home or self-care (01) ==
LOC: C.EDB 18:30
DX: N83.201 Unspecified ovarian cyst, right side (principal); Z88.5 Allergy status to narcotic agent

== ENCOUNTER 2017-12-21 21:52 | Emergency (ER) | payer OTHER ==
[~2017-12-21] VITALS: Ht 165.1 cm; Wt 58.9 kg
[2017-12-21 22:04] VITALS: TEMP 36.8; Ht 165.1 cm; Wt 58.9 kg
[2017-12-21] MEDS ORDERED: IBUPROFEN 600 MG TAB PO STA (22:20)
[2017-12-21] MEDS ORDERED: ACETAMINOPHEN 500 MG TAB PO STA (22:20)
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
[2017-12-21 23:46] VITALS: BP 124/66; PULSE 65; O2SAT 98
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
== END 2017-12-21 23:46 | disposition home or self-care (01) ==
LOC: C.EDB 21:53
DX: S69.92XA Unspecified injury of left wrist, hand and finger(s), initial encounter (principal); S59.902A Unspecified injury of left elbow, initial encounter; I05.9 Rheumatic mitral valve disease, unspecified; V40.5XXA Car driver injured in collision with pedestrian or animal in traffic accident, initial encounter